=== PATIENT | female | born 1965 | race Caucasian/White ===

== ENCOUNTER 2023-10-15 15:57 | Emergency (ER) | payer BC, SELFPAY ==
[2023-10-15 16:04] VITALS: BP 166/95
[2023-10-15 16:42] LABS: % Basophils 0.3 % (0-2); % Eosinophils 0.1 % (0-6); % Immature Granulocytes 0.3 % (0-0.5); % Lymphocytes 16.3 % (20.5-51.1); % Monocytes 6.6 % (1.7-9.3); % Neutrophils 76.4 % (42.2-75.2); Absolute Lymphocytes 1.1 10^3/uL (1.2-3.4); Absolute Monocytes 0.5 10^3/uL (0.1-0.6); Absolute Neutrophils 5.2 10^3/uL (1.4-6.5); Hematocrit 40.2 % (37.0-47.0); Hemoglobin 13.9 g/dL (12.0-16.0); Mean Corp Hgb Conc. 34.6 g/dL (33.0-37.0); Mean Corpuscular Hgb 26.5 pg (27.0-31.0); Mean Corpuscular Volume 76.7 fL (81.0-99.0); Mean Platelet Volume 8.8 fL (7.4-10.4); Nucleated Red Blood Cells % 0 %; Platelet Count 228 10^3/uL (130-400); Red Blood Cell Count 5.24 10^6/uL (4.20-5.40); Red Cell Dist. Width 12.4 % (11.5-14.5); White Blood Cell Count 6.9 10^3/uL (4.8-10.8)
[2023-10-15 16:53] LABS: HCG, Serum Qualitative Screen Negative
[2023-10-15 16:56] LABS: Amphetamines Negative (Negative); Barbiturates Negative (Negative); Benzodiazepines Negative (Negative); Blood Urea Nitrogen 18 mg/dl (7-17); Buprenorphine Negative (Negative); Calcium 10.2 mg/dl (8.4-10.2); Carbon Dioxide 21 mmol/L (22-30); Chloride 104 mmol/L (98-107); Cocaine Negative (Negative); Glucose 183 mg/dl (70-99); Marijuana Negative (Negative); Methadone Negative (Negative); Methamphetamines Negative (Negative); Opiates Negative (Negative); Phencyclidine Negative (Negative); Potassium 3.9 mmol/L (3.5-5.1); Sodium 136 mmol/L (135-145); Tricyclic Antidepressants Negative (Negative); eGFR > 60.00
[2023-10-15 16:57] LABS: Alcohol None Detected
[2023-10-15 17:01] LABS: COVID-19 Antigen Negative (Negative)
--- NOTE | 2023-10-15 17:03 | ED.GENMED ---
History of Present Illness
General
Chief Complaint: Crisis Evaluation
Source: spouse
Exam Limitations: none
Time Seen by Provider: 10/15/23 16:52
Nursing documentation reviewed up to this point in time: agreed with
Travel History
Have you had any contact with someone who has COVID-19?: No
Do you have any symptoms of coronavirus? Fever > 100 degrees, chills, cough, shortness of breath, sore throat, loss of taste or smell, muscle aches, or headache?: No
History of Present Illness
History of Present Illness:
Patient sent to ED from crisis for medical clearance. According to she is suffering from depression. Symptoms have escalated over the past 2 days. She is not currently speaking. Does not make eye contact. Follow directions of .
Long history of depression. Last inpatient admission 2005
Past History
Past History
ED Past Medical History: HTN, Hypercholesterolemia and Psychiatric
ED Past Surgical History:
Social History
Tobacco: Former smoker
Alcohol: None
Drug: None
Personal:
Living: with family
Family History
Family History: Other (Noncontributory)
Review of Systems
Review of Systems
Allergies reviewed?: Yes
All Other Systems: ROS reviewed and negative except as documented in HPI and ROS
Constitutional: Reports no symptoms
EENT: Reports no symptoms
Respiratory: Reports no symptoms
Cardiac: Reports no symptoms
ABD/GI: Reports no symptoms
: Reports no symptoms
Musculoskeletal: Reports no symptoms
Skin: Reports no symptoms
Neurological: Reports no symptoms
Psychiatric: Reports depression
Phy Exam
General Physical Exam
General Presentation: well appearing
General age: appears stated age
General Skin: warm and dry
General Habitus: normal
General Mental: other (does not verbalilze with staff. Does not make eye contact. Follows husbands commands.)
Eye Exam
Eye Exam: PERRL, EOMI, conjunctiva normal and globe normal
Cardiovascular Exam
Cardiovascular Exam: regular rate/rhythm and no edema
Pulmonary Exam
Pulmonary Exam: lungs clear and no respiratory distress
Gastrointestinal Exam
Gastrointestinal Exam: non tender, soft, no organomegaly, no pulsatile mass and non distended
Musculoskeletal Exam
Musculoskeletal Exam: full ROM and neuro vasc intact
Skin Exam
Skin Exam: normal color, warm/dry and no rash
Psychiatric Exam
Psychiatric Exam: depressed, labile and other (not verbal with staff. Does not make eye contact.)
Course
Orders/Labs/Results
Orders:
Orders
10/15/23 16:07
ECG [Electrocardiogram (*1)] Urgent
Reason for Study: Hypertension, Benign
EKG- Treatment ONCE
Test Result ONCE
10/15/23 16:32
Alcohol Urgent
Basic Metabolic Panel Urgent
COVID-19 Antigen Urgent
Source: Nasal Swab
Complete Blood Count/With Diff Urgent
Free T4 Urgent
HCG, Serum Qualitative Screen Urgent
TSH Reflex To Free T4 Urgent
Urine Drug Abuse Screen Urgent
Date Specimen was Collected: 10/15/23
Time Specimen was Collected: 16:07
Abnormal Lab Results
10/15/23
16:32
MCV 76.7 L fL
(81.0-99.0)
MCH 26.5 L pg
(27.0-31.0)
Absolute Lymphs (auto) 1.1 L 10^3/uL
(1.2-3.4)
Neutrophils % 76.4 H %
(42.2-75.2)
Lymphocytes % 16.3 L %
(20.5-51.1)
Carbon Dioxide 21 L mmol/L
(22-30)
BUN 18 H mg/dl
(7-17)
Glucose 183 H mg/dl
(70-99)
TSH (Reflex) 0.28 L uIU/ml
(0.47-4.68)
10/15/23 16:32
10/15/23 16:32
Vital Signs
Initial and Last Documented VS:
Initial Vital Signs
Temp Pulse Resp BP Pulse Ox
98.5 F 68 18 166/95 98
10/15/23 16:04 10/15/23 16:04 10/15/23 16:04 10/15/23 16:04 10/15/23 16:04
Last Documented Vital Signs
Temp Pulse Resp BP Pulse Ox
98.5 F 68 18 166/95 98
10/15/23 16:04 10/15/23 16:04 10/15/23 16:04 10/15/23 16:04 10/15/23 16:04
*Critical Care Note
Total Time (30-74mins, 75-104mins- exclusive of procedures): Not Applicable
Update Note
Update Note:
Darline is medically cleared for inpatient psychiatric care
ED Attending Note
-
Portions of this chart may have been created with voice recognition software.� Occasional wrong word or��sound alike� substitutions may have occurred due to the inherent limitations of voice recognition software.
Discharge Plan
Departure
Patient Disposition: [facility]
Date of Disposition: 10/15/23
Time of Disposition: 17:09
Patient with high blood pressure during this ER visit?: No
Condition: Fair
Covid-19: Not Applicable
Discharge Problem:
Medical clearance for psychiatric admission
Prescriptions:
No Action
multivitamin [Multi-Day] 1 EACH tablet
1 ea PO DAILY
cyanocobalamin (vitamin B-12) 1,000 MCG tablet
500 mcg PO DAILY
aspirin [Ecotrin Low Strength] 81 MG tablet,delayed release (DR/EC)
81 mg PO DAILY
lithium carbonate 450 MG tablet extended release
450 mg PO BID
ascorbic acid (vitamin C) [Vitamin C] 500 MG tablet
500 mg PO DAILY
hyoscyamine sulfate 0.375 MG tablet extended release 12 hr
0.375 mg PO BID
pravastatin 20 MG tablet
20 mg PO DAILY
methimazole [Tapazole] 10 MG tablet
20 mg PO TID
cholecalciferol (vitamin D3) [Vitamin D3] 400 UNITS tablet
400 units PO DAILY
metoprolol tartrate 25 MG tablet
25 mg PO BID
sitagliptin phos-metformin [Janumet] 1 EACH tablet
1 ea PO .EVERYOTHERDAY
Patient Comments:
Pt has been taking every other day. She hasn't taken this medication for about a week.
amlodipine-valsartan 1 EACH tablet
1 ea PO DAILY
Lipitor:
1 tab PO DAILY
Patient Comments:
Pt unsure of dose.
Referrals:
Ramos Saini MD [Family Provider] -
Interventions
Interventions:
*Risk Screen - Suicide Last Done: 10/15/23 16:04
*General Assessment Last Done: 10/15/23 16:04
*Neglect/Abuse Screening Last Done: 10/15/23 16:04
ED- Fall Risk Assessment Last Done: 10/15/23 17:26
*ED COVID-19 Vaccine History Last Done: 10/15/23 17:26
*Nursing Disposition Last Done: 10/15/23 17:26
ED-Psychological Assessment Last Done: 10/15/23 17:27
Discharge Date and Time
Discharge Date/Time: 10/15/23 17:28
Print Language: SWISS
[2023-10-15 18:51] LABS: TSH Reflex To Free T4 0.28 uIU/ml (0.47-4.68)
[2023-10-15 19:33] LABS: Free T4 1.72 ng/dl (0.78-2.19)
== END 2023-10-15 17:28 ==
LOC: EMR 15:57
PROVIDERS: Emergency Medicine; EMERGENCY PHYSICIAN Emergency Medicine; FAMILY PHYSICIAN Internal Medicine
DX: Z02.79 Encounter for issue of other medical certificate (principal); F32.A Depression, unspecified; Z11.52 Encounter for screening for COVID-19; I10 Essential (primary) hypertension; E78.00 Pure hypercholesterolemia, unspecified; E05.00 Thyrotoxicosis with diffuse goiter without thyrotoxic crisis or storm; Z79.82 Long term (current) use of aspirin; Z87.891 Personal history of nicotine dependence; Z88.6 Allergy status to analgesic agent; Z88.5 Allergy status to narcotic agent; Z88.8 Allergy status to other drugs, medicaments and biological substances
CPT/HCPCS: 99283; 80048; 80306; 82077; 84439; 84443; 84703; 85025; 87811; 93005

== ENCOUNTER → 2024-11-08 10:24 | Outpatient (REF) | payer OTHER, SELFPAY | LOC: HWRCS 10:24 | PROVIDERS: ATTENDING PHYSICIAN Internal Medicine Cardiovascular Disease; FAMILY PHYSICIAN Student in an Organized Health Care Education/Training Program | DX: I10 Essential (primary) hypertension (principal) | CPT/HCPCS: 93306 ==